=== PATIENT | female | born 1970 | race Caucasian/White ===

== ENCOUNTER 2016-12-21 21:39 | Inpatient (IN) | payer OTHER ==
--- NOTE | 2016-12-21 22:00 | PDOC ---
Rapid Medical Evaluation Chief Complaint: Pain, Acute Time Seen by Provider: 12/21/16 21:59 Medical Evaluation: 12/21/16 21:59 I have performed a brief in-person evaluation of this patient. The patient presents with a chief complaint of: faith groin pain, pt with arterial stents placed by [facility] 11/2015 Pertinent physical exam findings: VSS I have ordered the following: arterial duplex The patient will proceed to the ED for further evaluation.
--- NOTE | 2016-12-21 23:52 | PDOC ---
History of Present Illness - General History Source: Patient <Ap Jacome - Last Filed: 12/22/16 01:29> - General History Source: Patient Exam Limitations: No Limitations - History of Present Illness Initial Comments: 12/22/16 00:39 The patient is a 46 year old female with significant past medical history of hypertension, hyperlipidemia, anal CA s/p treatment, and s/p arterial stents placed by Dr. Nava (11/2015) who presents to the ED with several days of bilateral groin pain. Patient denies any trauma to the area. She denies dysuria , hematuria, urgency, and frequency. She denies diaphoresis, lightheadedness, chest pain, SOB, leg swelling, jaw pain, shoulder pain, arm pain, nausea, or vomiting. Patient also has complaints of generalized malaise 2 days ago that has now resolved on its own. The patient denies fever, chills, cough, abdominal pain, and diarrhea. Allergies: NKDA Social History: No alcohol, tobacco, or drug use reported. Past Surgical History: s/p arterial stents placed by Dr. Nava (11/2015) PCP: None reported <Marlyn Bang - Last Filed: 12/22/16 01:34> - General Chief Complaint: Pain, Acute Stated Complaint: GROIN PAIN Time Seen by Provider: 12/21/16 21:59 Past History - Past Medical History Cancer: Yes (anal ca) Cardiac Disorders: Yes (cardiac stents) HTN: Yes Hypercholesterolemia: Yes Other medical history: PVD - Surgical History Cardiac Surgery: Yes (cardiac cath, stent) - Immunization History Immunization Up to Date: Yes - Psycho/Social/Smoking Cessation Hx Suicidal Ideation: No Smoking History: Current every day smoker Number of Cigarettes Smoked Daily: 10 Information on smoking cessation initiated: No Hx Alcohol Use: No Drug/Substance Use Hx: No <Ap Jacome - Last Filed: 12/22/16 01:29> <Marlyn Bang - Last Filed: 12/22/16 01:34> - Past Medical History Allergies/Adverse Reactions: Allergies Allergy/AdvReac Type Severity Reaction Status Date / Time No Known Allergies Allergy Verified 12/21/16 22:00 Home Medications: Ambulatory Orders Aspirin [ASA -] 81 mg PO DAILY 12/22/16 Clopidogrel Bisulfate [Plavix -] 75 mg PO DAILY 12/22/16 Metoprolol Tartrate 25 mg PO ONCE MDD daily 12/22/16 Rosuvastatin Calcium [Crestor] 80 mg PO HS 12/22/16 Review of Systems - Review of Systems Able to Perform ROS?: Yes Comments:: 12/22/16 00:39 CONSTITUTIONAL: +generalized malaise Absent: fever, chills, diaphoresis, generalized weakness, loss of appetite HEENT: Absent: rhinorrhea, nasal congestion, throat pain, throat swelling, difficulty swallowing, mouth swelling, ear pain, eye pain, visual Changes CARDIOVASCULAR: Absent: chest pain, syncope, palpitations, irregular heart rate, lightheadedness , peripheral edema RESPIRATORY: Absent: cough, shortness of breath, dyspnea with exertion, orthopnea, wheezing, stridor, hemoptysis GASTROINTESTINAL: Absent: abdominal pain, abdominal distension, nausea, vomiting, diarrhea, constipation, melena, hematochezia GENITOURINARY: +bilateral groin pain Absent: dysuria, frequency, urgency, hesitancy, hematuria , flank pain MUSCULOSKELETAL: Absent: myalgia, arthralgia, joint swelling SKIN: Absent: rash, itching, pallor HEMATOLOGIC/IMMUNOLOGIC: Absent: easy bleeding, easy bruising, lymphadenopathy, frequent infections NEUROLOGIC: Absent: headache, focal weakness or paresthesias, dizziness, unsteady gait, seizure, mental status changes, bladder or bowel incontinence PSYCHIATRIC: Absent: anxiety, depression, suicidal or homicidal ideation, hallucinations. <Marlyn Bang - Last Filed: 12/22/16 01:34> *Physical Exam - Vital Signs Last Vital Signs Temp Pulse Resp BP Pulse Ox 97.9 F 98 H 18 143/80 100 12/21/16 21:51 12/21/16 21:51 12/21/16 21:51 12/21/16 21:51 12/21/16 21:51 <Ap Jacome - Last Filed: 12/22/16 01:29> - Vital Signs Last Vital Signs Temp Pulse Resp BP Pulse Ox 97.9 F 98 H 18 143/80 100 12/21/16 21:51 12/21/16 21:51 12/21/16 21:51 12/21/16 21:51 12/21/16 21:51 - Physical Exam Comments: 12/22/16 00:39 GENERAL: Well developed, well nourished. Awake and alert. No acute distress. HEENT: Normocephalic, atraumatic. PERRLA, EOMI. No conjunctival pallor. Sclera are non- icteric. Moist mucous membranes. Oropharynx is clear. NECK: Supple. Full ROM. No JVD. Carotid pulses 2+ and symmetric, without bruits. No thyromegaly. No lymphadenopathy. CARDIOVASCULAR: Regular rate and rhythm. No murmurs, rubs, or gallops. Distal pulses are 2+ and symmetric. PULMONARY: No evidence of respiratory distress. Lungs clear to auscultation bilaterally. No wheezing, rales or rhonchi. ABDOMINAL: Soft. Non-tender. Non-distended. No rebound or guarding. No organomegaly. Normoactive bowel sounds. MUSCULOSKELETAL Normal range of motion at all joints. No bony deformities or tenderness. No CVA tenderness. EXTREMITIES: Mild tenderness to bilateral groin region. Bilateral lower extremities are warm. No cyanosis. No clubbing. No edema. No calf tenderness. SKIN: Warm and dry. Normal capillary refill. No rashes. No jaundice. NEUROLOGICAL: Alert, awake, appropriate. Cranial nerves 2-12 intact. No deficits to light touch and temperature in face, upper extremities and lower extremities. No motor deficits in the in face, upper extremities and lower extremities. Normoreflexic in the upper and lower extremities. Normal speech. PSYCHIATRIC: Cooperative. Good eye contact. Appropriate mood and affect. <Marlyn Bang - Last Filed: 12/22/16 01:34> Heart Score/ECG Review - ECG Impressions Comment:: 12/22/16 01:03 NSR @90bpm Nonspecific ST and T wave abnormality Abnormal ECG <Marlyn Bang - Last Filed: 12/22/16 01:34> ED Treatment Course - LABORATORY CBC & Chemistry Diagram: 12/22/16 00:05 12/22/16 00:05 <Ap Jacome - Last Filed: 12/22/16 01:29> - LABORATORY CBC & Chemistry Diagram: 12/22/16 00:05 12/22/16 00:05 - Medications Given in the ED: ED Medications Discontinued Medications Generic Name Dose Route Start Last Admin Trade Name Freq PRN Reason Stop Dose Admin Morphine Sulfate 6 mg 12/21/16 23:53 12/22/16 00:27 Morphine Injection - IVPUSH 12/21/16 23:54 6 mg ONCE ONE Administration Ondansetron HCl 4 mg 12/21/16 23:53 12/22/16 00:27 Zofran Injection IVPUSH 12/21/16 23:54 4 mg ONCE STA Administration <Marlyn Bang - Last Filed: 12/22/16 01:34> Medical Decision Making - Medical Decision Making 12/22/16 01:29 Dr. Jacome: The scribe's documentation has been prepared under my direction and personally reviewed by me in its entirery. I confirm that the note above accurately reflects all work, treatment, procedures, and medical decision making performed by me. <Ap Jacome - Last Filed: 12/22/16 01:29> *DC/Admit/Observation/Transfer - Discharge Dispostion Admit: Yes <Ap Jacome - Last Filed: 12/22/16 01:29> - Attestations Scribe Attestion: 12/22/16 00:39 Documentation prepared by Marlyn Bang, acting as biomedical specialist for Ap Jacome MD <Marlyn Bang - Last Filed: 12/22/16 01:34> Diagnosis at time of Disposition: Bilateral leg pain, Arterial occlusive disease
[2016-12-21] MEDS ORDERED: morphine CARPU-JECT 2 MG/1 ML DISP.SYRIN IVPUSH ONE (23:53)
[2016-12-21] MEDS ORDERED: ONDANSETRON 4 MG/2 ML VIAL IVPUSH STA (23:53)
[2016-12-21] MEDS ORDERED: morphine CARPU-JECT 4 MG/1 ML DISP.SYRIN ONE (23:59)
[2016-12-22] MEDS ORDERED: ONDANSETRON 4 MG/2 ML VIAL ONE
[2016-12-22 00:41] LABS: BASOPHIL 0.3 % (0-2.0); EOSINOPHIL 0.3 % (0-4.5); MCH 31.2 pg (25.7-33.7); MCHC 33.7 g/dl (32.0-36.0); MEAN CELL VOLUME 92.7 fl (80-96); MEAN PLT VOLUME 7.5 fl (7.5-11.1); NEUTROPHILS 81.1 % (42.8-82.8); PLATELET COUNT 279 K/MM3 (134-434); RDW 14.5 % (11.6-15.6); WHITE BLOOD COUNT 7.8 K/mm3 (4.0-10.0)
[2016-12-22 01:06] LABS: INR 0.99 (0.82-1.09); PROTHROMBIN TIME (PATIENT) 10.9 SEC (9.98-11.88)
[2016-12-22 01:16] LABS: ANION GAP 10 (8-16); BILIRUBIN,TOTAL 0.2 mg/dL (0.2-1.0); CALCIUM 8.9 mg/dL (8.5-10.1); CO2 25 mmol/L (21-32); CREATININE 0.6 mg/dL (0.55-1.02); GLUCOSE,RANDOM 106 mg/dL (74-106); MAGNESIUM 2.2 mg/dL (1.8-2.4); SGOT/AST 12 U/L (15-37); SGPT/ALT 20 U/L (12-78); TOT PROT 7.4 g/dl (6.4-8.2)
[2016-12-22 01:18] LABS: ALK PHOS 79 U/L (45-117); TROPONIN I < 0.02 ng/ml (0.00-0.05)
--- NOTE | 2016-12-22 01:33 | HP ---
<Taylor Mejia - Last Filed: 12/22/16 02:47> CHIEF COMPLAINT: bilateral groin pain PCP: none HISTORY OF PRESENT ILLNESS: The patient is a 46 year old female with past medical HTN, HLD, CAD (with stents ), anal ca s/p treatment, bilateral arterial stents placed by Dr Nava in presents with bilateral groin pain. Patient reports difficulty ambulating secondary to pain. She denies cp, SOB, chest pressure, palpitations or leg swelling. She denies fever, chills, nausea, vomiting, diarrhea or constipation. ER course was notable for: (1) duplex showed inflow arterial disease bilateral right popliteal and posterior tibial vein and left superficial femoral, popliteal and posterior tibial vein . (2) arterial duplex did not show left groin stent but patent stent in right groin Recent Travel: none PAST MEDICAL HISTORY: HTN, HLD, CAD, anal ca s/p treatment PAST SURGICAL HISTORY: cardiac stents 2002, bypass surgery, repaired aorta surgery 2014 and bilateral arterial stents placed by Dr Nava in 11/2015 Social History: Smoking: denies Alcohol: denies Drugs: denies Family History: non contributory Allergies No Known Allergies Allergy (Verified 12/21/16 22:00) HOME MEDICATIONS: Home Medications Medication Instructions Recorded Aspirin [ASA -] 81 mg PO DAILY 12/22/16 Clopidogrel Bisulfate [Plavix -] 75 mg PO DAILY 12/22/16 Metoprolol Tartrate 25 mg PO ONCE MDD daily 12/22/16 Rosuvastatin Calcium [Crestor] 80 mg PO HS 12/22/16 REVIEW OF SYSTEMS CONSTITUTIONAL: Absent: fever, chills, diaphoresis, generalized weakness, malaise, loss of appetite, weight change HEENT: Absent: rhinorrhea, nasal congestion, throat pain, throat swelling, difficulty swallowing, mouth swelling, ear pain, eye pain, visual changes CARDIOVASCULAR: Absent: chest pain, syncope, palpitations, irregular heart rate, lightheadedness , peripheral edema RESPIRATORY: Absent: cough, shortness of breath, dyspnea with exertion, orthopnea, wheezing, stridor, hemoptysis GASTROINTESTINAL: Absent: abdominal pain, abdominal distension, nausea, vomiting, diarrhea, constipation, melena, hematochezia GENITOURINARY: Absent: dysuria, frequency, urgency, hesitancy, hematuria, flank pain, genital pain MUSCULOSKELETAL: Present: bilateral groin pain Absent: myalgia, arthralgia, joint swelling, back pain, neck pain SKIN: Absent: rash, itching, pallor HEMATOLOGIC/IMMUNOLOGIC: Absent: easy bleeding, easy bruising, lymphadenopathy, frequent infections ENDOCRINE: Absent: unexplained weight gain, unexplained weight loss, heat intolerance, cold intolerance NEUROLOGIC: Absent: headache, focal weakness or paresthesias, dizziness, unsteady gait, seizure, mental status changes, bladder or bowel incontinence PSYCHIATRIC: Absent: anxiety, depression, suicidal or homicidal ideation, hallucinations. PHYSICAL EXAMINATION Vital Signs - 24 hr 12/21/16 21:51 Temperature 97.9 F Pulse Rate 98 H Respiratory 18 Rate Blood Pressure 143/80 O2 Sat by Pulse 100 Oximetry (%) GENERAL: Awake, alert, and fully oriented, in no acute distress. HEAD: Normal with no signs of trauma. EYES: Pupils equal, round and reactive to light, extraocular movements intact, sclera anicteric, conjunctiva clear. No lid lag. EARS, NOSE, THROAT: Ears normal, nares patent, oropharynx clear without exudates. Moist mucous membranes. NECK: Normal range of motion, supple without lymphadenopathy, JVD, or masses. LUNGS: Breath sounds equal, clear to auscultation bilaterally. No wheezes, and no crackles. No accessory muscle use. HEART: Regular rate and rhythm, normal S1 and S2 without murmur, rub or gallop. ABDOMEN: +mild lower abdominal tenderness upon palpation. Soft, not distended, normoactive bowel sounds, no guarding, no rebound, no masses. No hepatomegaly or splenomegaly. MUSCULOSKELETAL: Normal range of motion at all joints. No bony deformities or tenderness. No CVA tenderness. UPPER EXTREMITIES: 2+ pulses, warm, well-perfused. No cyanosis. No clubbing. Cap refill <2 seconds. No peripheral edema. LOWER EXTREMITIES: +2 dorsalis pedis pulses and posterior tibial pulses, warm, well-perfused. No calf tenderness. No peripheral edema. NEUROLOGICAL: Cranial nerves II-XII intact. Normal speech. PSYCHIATRIC: Cooperative. Good eye contact. Appropriate mood and affect. SKIN: Warm, dry, normal turgor, no rashes or lesions noted. Laboratory Results - last 24 hr 12/22/16 12/22/16 12/22/16 00:05 00:05 00:05 WBC 7.8 RBC 4.09 Hgb 12.8 Hct 37.9 MCV 92.7 MCHC 33.7 RDW 14.5 Plt Count 279 MPV 7.5 Neutrophils % 81.1 Lymphocytes % 9.0 Monocytes % 9.3 Eosinophils % 0.3 Basophils % 0.3 INR 0.99 Sodium 139 Potassium 4.2 Chloride 104 Carbon Dioxide 25 Anion Gap 10 BUN 13 Creatinine 0.6 Creat Clearance w eGFR > 60 Random Glucose 106 Calcium 8.9 Magnesium 2.2 Total Bilirubin 0.2 AST 12 L ALT 20 Alkaline Phosphatase 79 Creatine Kinase 28 Troponin I < 0.02 Total Protein 7.4 Albumin 3.0 L IMAGING: EXAM: US/DUPLEX ART. LOWER COMPL US Impression: Biphasic waveform in the right popliteal and posterior tibial vein suggestive of inflow arterial disease. Biphasic waveform in the left superficial femoral, popliteal and posterior tibial vein suggestive of inflow arterial disease, as well. Patent stent in the right groin. No left groin stent is identified. Correlate clinically and further evaluation is needed. ASSESSMENT/PLAN: 46 year female with pmhx hypertension, hyperlipidemia, anal cancer and arterial stents placed in 2016 presents with groin pain found to have peripheral arterial disease 1. PAD - Pulses intact - Consult vascular surgery, , for left stent placement and continuing bilateral groin pain with vascular disease - Continue Plavix and asprin - Continue with Statin - Consider CARLOS ALBERTO/CTA of abdomen 2. CAD -continue home meds 3. HTN - Continue with beta nixon 4. Hyperlipidemia - Continue Statin 5. DVT ppx - Low risk - Ambulate Admit to Med-Surg. Documentation prepared by MAX Riggins, acting as medical photographer for Radha Wong MD. <Radha Wong - Last Filed: 12/26/16 18:59> Visit type - Emergency Visit Emergency Visit: Yes ED Registration Date: 12/22/16 Care time: The patient presented to the Emergency Department on the above date and was hospitalized for further evaluation of their emergent condition. - New Patient This patient is new to me today: Yes Date on this admission: 12/26/16 - Critical Care Critical Care patient: No
[2016-12-22] MEDS ORDERED: METOPROLOL TARTRATE 25 MG TABLET (FP) PO SCH (01:45)
[2016-12-22] MEDS ORDERED: METOPROLOL TARTRATE 25 MG TABLET (FP) PO ONE (01:45)
[2016-12-22 02:04] LABS: URINE APPEARANCE CLEAR; URINE BILIRUBIN NEGATIVE (NEGATIVE); URINE BLOOD NEGATIVE (NEGATIVE); URINE COLOR YELLOW; URINE GLUCOSE (UA) NEGATIVE (NEGATIVE); URINE KETONE NEGATIVE (NEGATIVE); URINE LEUK ESTERASE NEGATIVE (NEGATIVE); URINE NITRITE NEGATIVE (NEGATIVE); URINE PROTEIN NEGATIVE (NEGATIVE); URINE UROBILINOGEN 4.0 E.U/dl E.U./dl (0.2-1.0)
[2016-12-22 04:01] VITALS: BMI 26.6
[2016-12-22] MEDS ORDERED: oxyCODONE HCL 5 MG TABLET PO ONE ×2 (05:00→19:58)
[2016-12-22 07:48] LABS: MCH 31.5 pg (25.7-33.7); MCHC 33.8 g/dl (32.0-36.0); MEAN PLT VOLUME 7.6 fl (7.5-11.1); PLATELET COUNT 273 K/MM3 (134-434); RDW 14.5 % (11.6-15.6); WHITE BLOOD COUNT 7.2 K/mm3 (4.0-10.0)
[2016-12-22 08:57] LABS: CREATININE 0.6 mg/dL (0.55-1.02)
[2016-12-22] MEDS: ASPIRIN 81 MG CHEWABLE TABLETS PO SCH (10:25)
[2016-12-22] MEDS: CLOPIDOGREL BISULFATE 75 MG TABLET (FP) PO SCH (10:25)
--- NOTE | 2016-12-22 14:10 | EKG ---
Test Reason : Blood Pressure : / mmHG Vent. Rate : 090 BPM Atrial Rate : 090 BPM P-R Int : 130 ms QRS Dur : 074 ms QT Int : 348 ms P-R-T Axes : 057 060 082 degrees QTc Int : 425 ms NORMAL SINUS RHYTHM NONSPECIFIC ST AND T WAVE ABNORMALITY ABNORMAL ECG NO PREVIOUS ECGS AVAILABLE Confirmed by MICHAEL MYERS MD ([id number]) on 12/22/2016 2:09:51 PM Referred By: Confirmed By:MICHAEL MYERS MD
--- NOTE | 2016-12-22 16:14 | HOSP ---
Physical Examination Vital Signs: Vital Signs Temperature 98.1 F 12/22/16 13:47 Pulse Rate 79 12/22/16 13:47 Respiratory Rate 20 12/22/16 13:47 Blood Pressure 113/62 12/22/16 13:47 O2 Sat by Pulse Oximetry (%) 98 12/22/16 03:00 Labs: CBC, BMP 12/22/16 06:00 12/22/16 06:00 Hospitalist Encounter Assessment: Subjective: Pt seen and examined. She states the pain is gone at the moment, it starts in her groin and radiates up towards her pelvic region. One week ago she underwent a colonoscopy with her GI specialist at [place], found was a polyp, not removed due to location being in membrane/skin fold and needing further evaluation and endovascular, concern for malignancy. She denies difficulty defecating, urinating, vomiting, nausea, bleeding, at baseline has no appetite. Objective: PE Neuro: alert, awake, cn 2-12intact Pulm: scattered rhonci bilaterally CV: s1 s2 rrr Abd: mid abd incision- healed, suprapubic tenderness R>L to palpation, no distended Ext: +2 pedal pulses, no le edema, le warm Current Medications Generic Name Dose Route Start Last Admin Trade Name Freq PRN Reason Stop Dose Admin Aspirin 81 mg 12/22/16 10:00 12/22/16 10:25 Asa - PO 81 mg DAILY RHODA Administration Clopidogrel Bisulfate 75 mg 12/22/16 10:00 12/22/16 10:25 Plavix - PO 75 mg DAILY RHODA Administration Rosuvastatin Calcium 80 mg 12/22/16 22:00 Crestor - PO HS [facility] Assessment: 46 year old female with hx of anal ca s/p treatment, HTN, HLD, CAD ( with stents), bilateral arterial stents placed by Dr Nava in 11/2015 admitted with bilateral groin pain. Plan: 1. Lower abdominal groin/pelvic pain - CTAP with contrast ordered; pt had CT last week states was negative - Concern for perf, 2/2 recent colonoscopy however hgb stable and pain is intermittent - Consider GI consult following CT read 2. Bilateral arterial stents 2015 - Discussed with Dr. Nava, evaluated pt, states her pain is not circulation related, pt with bounding pulses - Continue ASA - Continue Plavix - Continue Crestor 3. CAD s/p stents - Above meds 4. DVT ppx - Lovenox sq
[2016-12-22] MEDS ORDERED: ROSUVASTATIN CA 20 MG TABLET (FP) PO SCH (22:00)
[2016-12-22] MEDS ORDERED: ROSUVASTATIN CA 40 MG TABLET PO SCH (22:00)
[2016-12-23] MEDS: CLOPIDOGREL BISULFATE 75 MG TABLET (FP) PO SCH (09:47)
[2016-12-23] MEDS: ASPIRIN 81 MG CHEWABLE TABLETS PO SCH (09:47)
[2016-12-23] MEDS ORDERED: ENOXAPARIN NA (PORCINE) 40 MG/0.4 ML DISP.SYRIN SQ SCH (10:00)
[2016-12-23 13:56] VITALS: BP 145/98; PULSE 111; TEMP 97.7
--- NOTE | 2016-12-23 14:16 | DS ---
[id number] Period Temp Pulse Resp BP Sys/Lake Pulse Ox Last 24 Hr 97.7 F-98.7 F 78-111 18-20 137-152/70-98 98 PHYSICAL EXAM GENERAL: The patient is awake, alert, and fully oriented, in no acute distress. HEAD: Normal with no signs of trauma. EYES: PERRL, extraocular movements intact, sclera anicteric, conjunctiva clear. ENT: Ears normal, nares patent, oropharynx clear without exudates, moist mucous membranes. NECK: Trachea midline, full range of motion, supple. LUNGS: Breath sounds equal, clear to auscultation bilaterally, no wheezes, no crackles, no accessory muscle use. HEART: Regular rate and rhythm, S1, S2 without murmur, rub or gallop. ABDOMEN: Soft, nontender, nondistended, normoactive bowel sounds, no guarding, no rebound, no hepatosplenomegaly, no masses. EXTREMITIES: 2+ pulses, warm, well-perfused, no edema. NEUROLOGICAL: Cranial nerves II through XII grossly intact. Normal speech, gait not observed. PSYCH: Normal mood, normal affect. SKIN: Warm, dry, normal turgor, no rashes or lesions noted. LABS HOSPITAL COURSE: Date of Admission:12/22/16 Date of Discharge: 12/23/16 Minutes to complete discharge: 35 Discharge Summary Reason For Visit: BILATERAL LEG PAIN,ATERIAL OCCLUSIVE DISEASE Condition: Improved - Instructions Diet, Activity, Other Instructions: -You were admitted for pelvic pain. -CT of the abdomen/pelvis shows possible pelvic congestion syndrome, a condition caused by varicose veins in the lower abdomen. If your symptoms persist, follow up with tube winder (referral enclosed) for further evaluation. -Please resume all of your regular medications. -Follow up with your primary doctor in 1-2 weeks. -Return here for any new or concerning symptoms. Referrals: Tom Park MD [Staff Physician] - Disposition: HOME - Home Medications Comprehensive Discharge Medication List: Ambulatory Orders Aspirin [ASA -] 81 mg PO DAILY 12/22/16 Clopidogrel Bisulfate [Plavix -] 75 mg PO DAILY 12/22/16 Metoprolol Tartrate 25 mg PO ONCE MDD daily 12/22/16 Rosuvastatin Calcium [Crestor] 80 mg PO HS 12/22/16 This patient is new to me today: Yes Date on this admission: 01/16/17 Emergency Visit: Yes ED Registration Date: 12/22/16 Care time: The patient presented to the Emergency Department on the above date and was hospitalized for further evaluation of their emergent condition. Critical Care patient: No - Discharge Referral Referred to [facility] Med [facility] No
== END 2016-12-23 15:45 | disposition home or self-care (01) | DRG 760 ==
LOC: JER 21:39 → JERBED 12-22 01:25 → J7W 12-22 03:35
PROVIDERS: ADMIT Internal Medicine; ATTEND Registered Nurse Emergency
DX: N94.89 Other specified conditions associated with female genital organs and menstrual cycle (principal); C21.0 Malignant neoplasm of anus, unspecified; R10.30 Lower abdominal pain, unspecified; I10 Essential (primary) hypertension; E78.5 Hyperlipidemia, unspecified; I73.89 Other specified peripheral vascular diseases; E78.00 Pure hypercholesterolemia, unspecified; F17.210 Nicotine dependence, cigarettes, uncomplicated; I83.93 Asymptomatic varicose veins of bilateral lower extremities; Z95.5 Presence of coronary angioplasty implant and graft
CPT/HCPCS: 36415; 71010-TC; 74178-TC; 80048; 80053; 81003; 82550; 83735; 84484; 84703; 85025; 85027; 85610; 86850; 86900; 86901; 87040; 87086; 93005; 93010; 93925-TC; 99284-25; Q9967